=== PATIENT | male | born 1990 | race Caucasian/White ===

== ENCOUNTER 2017-11-12 12:11 | Emergency (ER) | payer OTHER ==
[2017-11-12 12:21] VITALS: BP 148/88; PULSE 86; RESP 16; TEMP 98.4; O2SAT 98
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
== END 2017-11-12 12:55 | disposition home or self-care (01) ==
LOC: CED 12:11
DX: S09.90XA Unspecified injury of head, initial encounter (principal); W01.198A Fall on same level from slipping, tripping and stumbling with subsequent striking against other object, initial encounter